=== PATIENT | male | born 1980 | race Caucasian/White ===

== ENCOUNTER 2020-12-22 22:45 | Emergency (ER) | payer OTHER ==
[~2020-12-22 22:45] MED LIST: BENTYL10 MG PO; LIPITOR20 MG PO; LOSARTAN-HCTZ1 EACH PO; NORVASC5 MG PO; TOPROL XL 50 MG50 MG PO; ZOFRAN ODT4 MG SL
== END 2020-12-22 23:38 | disposition home or self-care (01) ==
LOC: FER 22:45
DX: R04.0 Epistaxis (principal); I10 Essential (primary) hypertension; F17.210 Nicotine dependence, cigarettes, uncomplicated
CPT/HCPCS: 99283